=== PATIENT | male | born 2000 | race Caucasian/White ===

== ENCOUNTER 2021-06-15 07:54 | Outpatient (RCR) | payer OTHER, BC, SELFPAY ==
--- NOTE | 2021-06-15 08:14 | PTOPEVAL ---
Thank you for referring Abdulkadir Abernathy to [facility].? The patient is scheduled to be seen for therapy? ____x/week for ___ weeks. Please review, sign, date and return this plan of care KIMBERLY. I agree with and certify that the following plan of care is medically necessary. Referring Physician Date Admitting Provider: Attending Provider: Jackie Washburn Referring Provider: *PT Outpatient Evaluation Start: 06/15/21 07:11 Freq: Status: Active Protocol: Document 06/15/21 07:11 ACR (Rec: 06/15/21 08:13 ACR [id number]) Therapy Assessment Status Assessment Status Assessment Status Evaluation Evaluation Information Problem Diagnosis UCL strain Onset 04/18/21 Subjective Information Patient states that he plays Query Text:As Reported By Patient/ college baseball and caused Family the strain by overthowing. Patient states that he is still lifting and is causing no pain, but is not throwing right now. He states that the orthopedic doctor would like three weeks of PT then to start a throwing program. The patient returns to school on and will have to transfer to another PT. Pain Assessment Timing of Pain Assessment Timing of Pain Assessment Assessment Pain Scale Pain Scale Used Numeric (1 - 10) Self Report Pain Assessment Right Elbow(s) Reported Pain Level 0 Greatest Pain Intensity 0 Pain Score Pain Score 0: Self Report Interventions Used Interventions Used By Clinicians Activity or ADL's,Exercise Cervical and Lumbar Muscle Testing Lumbar Strength Lumbar Functional Strength Comments [facility] Upper Extremity Muscle Strength Testing Scapular/Shoulder Right Scapular Retraction - Rhomboid 5 Normal Scapular Retraction - Middle Trapezius 4 Good Scapular Retraction - Lower Trapezius 4 Good Shoulder Flexion Strength 5 Normal Shoulder Abduction Strength 5 Normal Shoulder Medial Rotation Strength 5 Normal Shoulder Lateral Rotation Strength 4+ Good + Left Scapular Retraction - Rhomboid 5 Normal Scapular Retraction - Middle Trapezius 4 Good Scapular Retraction - Lower Trapezius 4 Good Shoulder Flexion Strength 5 Normal Shoulder Abduction Strength 5 Normal Shoulder Medial Rotation Strength 5 Normal Shoulder Lateral Rotation Strength 4+ Good + Elbow/Forearm Right Elbow Flexion Strength 5 Normal Elbow Extension Strength 5 Normal Left Elbow Flexion Strength
== END 2021-06-23 14:00 | disposition home or self-care (01) ==
LOC: CHSPT 07:54
PROVIDERS: PCP Internal Medicine
DX: S53.441D Ulnar collateral ligament sprain of right elbow, subsequent encounter (principal)
CPT/HCPCS: 97110; 97140; 97161